=== PATIENT | male | born 1960 | race Caucasian/White ===

== ENCOUNTER 2022-12-10 20:11 | Emergency (ER) | payer OTHER, SELFPAY ==
[2022-12-10 20:18] VITALS: BP 139/67; PULSE 90; RESP 15; TEMP 36.9; O2SAT 95
[2022-12-10 21:17] LABS: Bilirubin Negative (Negative); Blood Moderate (Negative); Clarity Clear (Clear); Glucose 500 mg/dL (Negative); Ketones 15 mg/dL (Negative); Leukocyte Esterase Negative (Negative); Nitrite Negative (Negative); Specific Gravity 1.015 (1.005-1.025); Urobilinogen 0.2 mg/dL (Up to 0.2); pH 5.5 (5-8)
--- NOTE | 2022-12-10 21:33 | ED.GENADUL_ITS ---
Discharge Plan Disposition Patient Disposition: Home Condition: Good Discharge Details Clinical Impression: Acute UTI Primary Care Provider: Darline,Local ED Provider: Dominique Varela Home Meds and New Rx's Prescriptions: New sulfamethoxazole-trimethoprim [Bactrim DS] 800-160 mg tablet 1 tab PO BID 6 Days Qty: 12 0RF Continued metformin 1,000 mg Tablet 1,000 mg PO 2XD Jardiance 10 mg Tablet 10 mg PO 1XD Trulicity 1.5 mg/0.5 mL Pen Injector 3 mg SUBCUT 4XW Discharge Instructions Instructions: Sulfamethoxazole/Trimethoprim (By mouth), Urinary Tract Infection in Men (ED) Additional Instructions: Your symptoms and urinary analysis is concerning for urinary tract infection. As we discussed, I do not see indication of infection in your prostate or your kidneys. Please continue to encourage hydration. Please take the antibiotics as prescribed. Even if symptoms improve, please take the entire course. Please contact your primary care regarding your glucose also to schedule follow-up appointment regarding your UTI. If you develop fever/chills, increased pain, back pain or other new/worsening symptom please seek care urgently once again. Discharge Data Discharge Date/Time-TO BE ENTERED AT DEPARTURE: 12/10/22 22:18 Medical Decision Making Patient is a pleasant 62 year old male, accompanied by signficant other, with chief complaint of dysurea, increased urinary frequency and urgency. States this began a few days ago. Initially tried increased hydration, cranberry juice, but symptoms have worsened and urination has had increased frequency, all with small quantities. No penile d/c, no exposure to STI. No testicular pain. No fevers/chills. Hx of enlarged prostate and type II DM. Was recently changed to Jardiance and states that since then he has had a difficult time managing his glucose which is now around 300. On exam, patient appears non-toxic, resting comfortably in no acute distress. Hemodynamically stable, afebrile. No abdominal pain, no CVA tenderness, no prostate tenderness. Prostate was not boggy. Post void was 90. No evidence of pyelonephritis, stone, obstructive pathology, prostatitis, septicemia. UA concerning for UTI. Unusual in this population but likely associated with the Jardiance with increase in this with the poorly controlled glucose. Will begin on abx. Advised he call his PCP to discuss his medication. Strict return precautions discussed. All of his quesitons and concerns were addressed, he is in agreemen with this plan. HPI General Date/Time Provider Initiated Documentation: 12/10/22 21:05 . Limitations to Documentation: no limitations . Information obtained by: patient, family and RN notes reviewed . History of Present Illness 62 year old M presents to the emergency department with the chief complaint of dysurea, increased frequency and urgency of urination, described as moderate, Quality is described as burning, and is localized to the genitals. Patient reports no radiation. Patient started experiencing t his day(s) and it has been constant (his time between urination has been shortening). No relieving factors improve symptom(s), Other factors that worsen symptoms (burning with urination) . Patient notes no other symptoms.; denies fever/chills, loss of appetite and nausea/vomiting. Patient did receive the following treatments prior to arrival, other (hydration, cranberry juice) Related Data Home Medications Medication Instructions Recorded Confirmed dulaglutide 1.5 mg/0.5 mL 3 mg subcut 4XW 12/10/22 12/10/22 subcutaneous pen injector (Trulicity) empagliflozin 10 mg tablet 10 mg PO 1XD 12/10/22 12/10/22 (Jardiance) metformin 1,000 mg tablet 1,000 mg PO 2XD 12/10/22 12/10/22 sulfamethoxazole 800 1 tab PO BID 6 days #12 tabs 12/10/22 mg-trimethoprim 160 mg tablet (Bactrim DS) Previous Rx's Medication Instructions Recorded sulfamethoxazole 800 1 tab PO BID 6 days #12 tabs 12/10/22 mg-trimethoprim 160 mg tablet (Bactrim DS) Allergies Allergy/AdvReac Type Severity Reaction Status Date / Time No Known Allergies Allergy Unverified 12/10/22 21:20 General Stated Complaint: Urinary NAVDEEP: 3 Review of Systems Constitutional Constitutional: Reports as per HPI, Denies chills, Denies fever(s) and Denies poor appetite Gastrointestinal Gastrointestinal: Denies abdominal pain, Denies change in bowel habits, Denies nausea and Denies vomiting Genitourinary Genitourinary: Reports as per HPI Musculoskeletal Musculoskeletal: Reports as per HPI and Denies back pain Integumentary/Breasts Skin/Breast: Reports as per HPI and Denies rash [facility] All Active Problems (Updated 12/10/22 @ 22:09 by BHARATHI Altamirano) Acute UTI (Acute) Social History Smoking/Tobacco Use Status: Never Smoking risk assessment performed?: Yes Alcohol Intake: current Alcohol Intake frequency: holidays/special occasions only Substance use type: does not use Exam Const General: cooperative, healthy appearing, comfortable, no acute distress, well developed and well groomed Nutritional Appearance: average body habitus and well nourished Orientation: alert and awake Resp Effort & Inspection: normal respiratory effort and no respiratory distress GI Inspection: normal to inspection Palpation: soft, no hepatosplenomegaly, not firm, no guarding, not rigid and nontender Rectal Exam: visual inspection normal, normal sphincter tone, prostate normal (prostate slightly enlarged but normal density, non-tender) and No tenderness Back/Spine/Pelvis Back: no CVA tenderness Skin General skin exam: no rashes or lesions noted Trauma: no lacerations or abrasions Neuro General: patient alert and patient awake Speech: speech normal Gait: normal gait Course Vital Signs Vital signs: Vital Signs Temperature 36.9 C 12/10/22 20:18 Pulse 90 12/10/22 20:18 Respiratory Rate 15 12/10/22 20:18 Blood Pressure 139/67 12/10/22 20:18 Pulse Oximetry 95 12/10/22 20:18 Temperature 36.9 C 12/10/22 20:18 Temperature Source Oral 12/10/22 20:18 Pulse 90 12/10/22 20:18 Respiratory Rate 15 12/10/22 20:18 Respiratory Effort Normal 12/10/22 21:17 Blood Pressure 139/67 12/10/22 20:18 Blood Pressure Position Sitting 12/10/22 20:18 Pulse Oximetry 95 12/10/22 20:18 Oxygen Delivery Method Room Air 12/10/22 20:18 Oxygen Flow Rate 0 12/10/22 20:18 Pain Level 0 12/10/22 20:18 Lab/Test Results Lab/Test Results: Laboratory Tests Range/Units 12/10/22 21:05 Urine Color (Yellow) Yellow Urine Clarity (Clear) Clear Urine pH (5-8) 5.5 Ur Specific [place] (1.005-1.025) 1.015 Urine Protein (Negative) mg/dL 100 H Urine Ketones (Negative) mg/dL 15 H Urine Blood (Negative) Moderate H Urine Nitrite (Negative) Negative Urine Bilirubin (Negative) Negative Urine Urobilinogen (Up to 0.2) mg/dL 0.2 Ur Leukocyte Esterase (Negative) Negative Urine Glucose (Negative) mg/dL 500 H
[2022-12-10 21:40] LABS: Bacteria Rare HPF (Negative); Epithelial Cells Rare HPF (Negative); Other Cells Negative (Negative); RBC 20-50 HPF (0-2); WBC 0-2 HPF (0-5)
[2022-12-10 21:42] LABS: Crystals Negative HPF (Negative); Mucus Trace (Negative)
[2022-12-10 21:43] LABS: C & S Indicated? Yes
--- NOTE | 2022-12-13 09:54 | NUR.NOTE ---
Accessed chart to look up whether or not on antibiotic.Nursing Note:
--- NOTE | 2022-12-13 10:05 | ED.FU.B_ITS ---
Date of service: 12/13/22 Time of Service: 10:05 Follow Up Plan: Patient's results had come back, urinalysis culture showed group B streptococcus greater than 100,000 units. Bactrim was prescribed. Research reveals that susceptibility is likely with the Bactrim. Did call the patient for follow-up, he states that he is feeling much better, symptoms have resolved. He has no other complaints. I have extensively reviewed the treatment plan and discharge instructions with the patient. I have addressed all patient concerns at this time. The patient was made aware of what symptoms to monitor for that would warrant a return to the emergency department. Discussed the plan with the patient, they demonstrate verbal understanding and agreement with our assessment and plan at this time. The documentation in this chart was dictated using [employer] dictation software. Please excuse any dictation errors.
== END 2022-12-10 22:18 | disposition home or self-care (01) ==
PROVIDERS: Emergency Provider Physician Assistant
DX: N39.0 Urinary tract infection, site not specified (principal); N40.1 Benign prostatic hyperplasia with lower urinary tract symptoms
CPT/HCPCS: 87077; 99283; 81003; 81015; 87086